=== PATIENT | male | born 1960 | race Caucasian/White ===

== ENCOUNTER → 2017-04-20 | Outpatient (CLI) | payer OTHER ==
[~2017-04-20] MED LIST: ATV/1 PO; AZIT250T PO; CYCL10TA6 PO; DRV100 PO; LRT5 PO; NXM/40 PO; RMR15 PO; VICODIN PO; ZFRODT4 SL
--- NOTE | 2017-04-20 07:40 | DIAGNOSTIC IMAGING REPORT ---
ABDOMEN FOR HERNIA CLINICAL HISTORY: 57 years-old Male presenting with GROIN PAIN. TECHNIQUE: Real-time grayscale ultrasound imaging of the right inguinal region and the right proximal thigh was performed for a focused evaluation for inguinal hernia. COMPARISON: None. FINDINGS: At the site of reported pain in the proximal medial right upper thigh, no gross abnormality noted. Normal musculature. No fluid collection. No subcutaneous edema. In the right inguinal canal, no apparent herniation of intra-abdominal contents despite Valsalva maneuver. IMPRESSION: 1. No abnormality at the site of clinical concern. 2. No evidence of right inguinal hernia. Electronically signed by: Ye Stone M.D. 04/20/2017 7:39 AM Dictated Date/Time: 04/20/2017 7:37 AM
== END | disposition home or self-care (01) ==
LOC: C.ULTR 06:36
PROVIDERS: ATTEND Nurse Practitioner Adult Health
DX: R10.9 Unspecified abdominal pain (principal)

== ENCOUNTER 2017-04-21 13:38 | Emergency (ER) | payer OTHER ==
[~2017-04-21] VITALS: Ht 177.8 cm; Wt 66.1 kg
[~2017-04-21 13:38] MED LIST changes: -ATV/1 PO; -CYCL10TA6 PO; -VICODIN PO
[2017-04-21 13:40] VITALS: TEMP 36.7; Ht 177.8 cm; Wt 66.1 kg
[2017-04-21 14:50] LABS: URINE APPEARANCE CLEAR (CLEAR); URINE BILIRUBIN NEG (NEG); URINE COLOR YELLOW; URINE NITRITE NEG (NEG); URINE SPECIFIC GRAVITY 1.014 (1.000-1.030); UROBILINOGEN NEG (NEG); ZZUR CULT IF INDIC CLEAN CATCH NO
--- NOTE | 2017-04-21 14:52 | EMERGENCY ROOM VISIT NOTE ---
History First contact with patient: 13:48 Chief Complaint: GROIN PAIN Stated Complaint: GROIN PAIN- WORK RELATED History of Present Illness The patient is a 57 year old male who presents to the Emergency Room with complaints of right groin pain 2 weeks. 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 He states that evening and the next day, he began experiencing right groin pain. He states he did think that this was a pulled muscle at the time, so did continue to work for the next week. 2 days ago, the patient states the pain became unbearable, so he went to occupational medicine for evaluation. Occupational medicine suspected a hernia in his groin, so ordered an ultrasound, which was completed yesterday. Ultrasound was negative for hernia. Today, the patient saw occupational medicine providers again, who stated the patient did not have a right patellar reflex, so sent him to the emergency department to have an MRI to rule out cauda equina syndrome. The patient is reporting discomfort from the right groin radiating down to his knee. He states standing still makes the pain worse , and it radiates down the medial aspect of his leg to his toe. The patient reports the pain is like something was torn or strained. He states when he is standing still, he experiences a sensation like warm water is running down his leg. The patient states moving makes the discomfort better. The patient denies back pain, loss of bowel or bladder function, weakness, paresthesias, fever, chills, vomiting, abdominal pain. He states he has been experiencing lumbar back pain for several years related to an L5 disc surgery, and states his pain that he is experiencing in his low back is his usual pain. Patient does report nausea. Review of Systems A complete 10 point review of systems was reviewed with the patient with pertinent positives and negatives as per history of present illness. All else were negative. Social History Smoking Status: Current Every Day Smoker Smokeless Tobacco Use: No Alcohol Use: none Drug Use: none Occupation Status: employed Current/Historical Medications Scheduled Esomeprazole Magnesium (Nexium), 40 MG PO DAILY Allergies Morphine Physical Exam Vital Signs Date Time Temp Pulse Resp B/P (MAP) Pulse Ox O2 Delivery O2 Flow Rate FiO2 04/21/17 18:02 65 16 131/85 99 04/21/17 17:12 68 16 134/82 7/20/17 15:35 65 20 123/79 96 Room Air 04/21/17 13:40 36.7 80 16 142/94 96 Room Air Physical Exam VITALS: Vitals are noted on the nurse's note and reviewed by myself. Vital signs stable. GENERAL: 77-year-old male, in no acute distress, nondiaphoretic, well-developed well-nourished. SKIN: The skin was without rashes, erythema, edema, or bruising. Capillary refill less than 2 seconds. NECK: Supple without nuchal rigidity. No cervical spine tenderness. No paraspinous muscle tenderness. HEART: Regular rate and rhythm without murmurs gallops or rubs. LUNGS: Clear to auscultation bilaterally without wheezes, rales or rhonchi. ABDOMEN: Positive bowel sounds x 4. Normal tympanic percussion. Soft, nontender, without masses or organomegaly. Warren sign negative. MUSCULOSKELETAL: No muscle atrophy, erythema, or edema noted of the back. There is no tenderness over the lumbar spinous processes. There is no tenderness over the paraspinous muscles bilaterally. There is no tenderness over the thoracic spine or paraspinous muscles. There are no muscle spasms present. The patient is slow to move around with maximum tenderness with standing straight. The patient does have significant tenderness of the right groin and medial thigh. Negative straight leg raise test. NEURO: Patient was alert and oriented to person place and time. Normal sensation to light and sharp touch. Patellar reflex 3+ on the left and 1+ on the right. Dorsalis pedis pulse 2+ bilaterally. Strength 5/5 and equal in the bilateral lower extremities. Medical Decision & Procedures ER Provider Diagnostic Interpretation: MRI Lumbar spine without contrast: FINDINGS: For the purpose of the report the L5-S1 disc space will be located on axial image of . Moderate degenerative disc changes throughout. Rather significant at L5-S1. L1-L2: Mild broad-based bulging disc. Mild impact anterior thecal sac. Neural foramina are patent bilaterally. L2-L3: Broad-based bulging disc with minimal impact anterior thecal sac. Rather significant narrowing left neuroforamina. L3-L4: Broad-based bulging disc with mild narrowing of the neuroforamina bilaterally. L4-L5: Broad-based bulging disc with significant narrowing right neuroforamina L5-S1: Broad-based bulging disc with no significant impact upon the thecal sac. Moderate narrowing of the right neuroforamina. IMPRESSION: 1. Multilevel degenerative disc change with multilevel bulging disc components. 2. Broad-based bulging disc is creating narrowing right neuroforamina at L4-L5. 3. Broad-based bulging disc L3-L4 with mild narrowing of the neuroforamina bilaterally. 4. Broad-based bulging disc L2-L3 with moderate narrowing left neuroforamina. URINALYSIS: Negative Laboratory Results Test 04/21/17 14:12 Urine Color YELLOW Urine Appearance CLEAR (CLEAR) Urine pH 6.0 (4.5-7.5) Urine Specific [place] 1.014 (1.000-1.030) Urine Protein NEG (NEG) Urine Glucose (UA) NEG (NEG) Urine Ketones NEG (NEG) Urine Occult Blood NEG (NEG) Urine Nitrite NEG (NEG) Urine Bilirubin NEG (NEG) Urine Urobilinogen NEG (NEG) Urine Leukocyte Esterase NEG (NEG) ED Course The patient was seen and evaluated as above. I discussed the case with Dr. Bhagat. He did recommend MRI and urinalysis. MRI without contrast was ordered. I reviewed urinalysis. MRI results were reviewed by myself and radiologist. My results as interpreted by radiologist are noted above. I discussed the findings with the patient. I did recommend he follow up with or the spine and contact them tomorrow. I discussed discharge instructions with the patient and he was discharged home in good condition. Medical Decision Throughout the course of the patient's care, I considered etiologies including: Cauda equina syndrome, bulging disc, degenerative disc disease, spinal stenosis , nerve impingement, malignancy, groin pain, groin strain, hernia, and others. Based on the patient's physical exam and workup. I feel that we have ruled out cauda equina syndrome, which is what patient came here to do. Based on the patient's MRI findings, I do feel that he has some chronic disc disease, and strongly encouraged him to follow up with ortho spine for further evaluation and management of his back pain. I do feel that the patient's symptoms are related to a garcía strain, and I feel that the MRI findings are chronic and not related to his groin injury from work. Medication Reconcilliation Current Medication List: was personally reviewed by me Blood Pressure Screening Patient's blood pressure: Normal blood pressure Impression Primary Impression: Groin strain Additional Impression: Bulging lumbar disc Departure Information Dispostion Home / Self-Care Condition GOOD Referrals Jony iMllan M.D. (PCP) Patient Instructions ED Strain [place], [facility] Additional Instructions At the request of your occupational medicine provider, we did perform an MRI of the lumbar spine in the emergency department to rule out cauda equina syndrome. The MRI did show bulging disks throughout the lumbar spine with mild to significant narrowing of the neuroforamina. Most significantly, the MRI showed significant narrowing of the right foramina at L4-L5. There was mild to moderate narrowing at L2-L3 and L3-L4. Based on these findings, I do strongly encourage you to follow up with ortho spine. You have been provided with a phone number for an orthopedic surgeon to contact. Work closely with your occupational medicine provider or family doctor in order to have this appointment set up. Please contact the surgeon tomorrow morning for an appointment. Continue following the pain regimen prescribed to you by occupational medicine. For pain control, you can use the following tkel-zsk-gtturob medicines (if >12 yo): - Regular strength (325mg/tab) Tylenol (acetaminophen) 2 tabs every 4-6 hours as needed. Do not exceed 9 tablets in a 24 hour period. Avoid taking more than 3 grams (3000 mg) of Tylenol per day. This includes any other sources of acetaminophen you may take on a regular basis. - Regular strength (200 mg/tab) Advil (ibuprofen) 1-2 tabs every 4-6 hours as needed. Do not exceed a dose of 3200 mg per day. If you experience worsening pain, numbness, tingling, loss of control of your bowel or bladder function, urinary retention, loss of muscle tone or weakness, or other associated concerning symptoms, return to the Emergency Department for further evaluation. Problem Qualifiers Primary Impression: Groin strain Encounter type: initial encounter Laterality: right Qualified Codes: S76.211A - Strain of adductor muscle, fascia and tendon of right thigh, initial encounter
[2017-04-21 15:05] LABS: MANUAL MICROSCOPIC REQUIRED? NO; REVIEW REQ? NO
--- NOTE | 2017-04-21 16:54 | DIAGNOSTIC IMAGING REPORT ---
LUMBAR SPINE W/O CONTRAST HISTORY: Pain right groin pain, diminished right patellar reflex TECHNIQUE: Multiplanar multisequence MRI of the lumbar spine was performed without the use of contrast. COMPARISON: None. FINDINGS: For the purpose of the report the L5-S1 disc space will be located on axial image 27 of 30. Moderate degenerative disc changes throughout. Rather significant at L5-S1. L1-L2: Mild broad-based bulging disc. Mild impact anterior thecal sac. Neural foramina are patent bilaterally. L2-L3: Broad-based bulging disc with minimal impact anterior thecal sac. Rather significant narrowing left neuroforamina. L3-L4: Broad-based bulging disc with mild narrowing of the neuroforamina bilaterally. L4-L5: Broad-based bulging disc with significant narrowing right neuroforamina L5-S1: Broad-based bulging disc with no significant impact upon the thecal sac. Moderate narrowing of the right neuroforamina. IMPRESSION: 1. Multilevel degenerative disc change with multilevel bulging disc components. 2. Broad-based bulging disc is creating narrowing right neuroforamina at L4-L5. 3. Broad-based bulging disc L3-L4 with mild narrowing of the neuroforamina bilaterally. 4. Broad-based bulging disc L2-L3 with moderate narrowing left neuroforamina. The above report was generated using voice recognition software. It may contain grammatical, syntax or spelling errors. Electronically signed by: Jason Denney M.D. 04/21/2017 4:53 PM Dictated Date/Time: 04/21/2017 4:49 PM
[2017-04-21 18:02] VITALS: BP 131/85; PULSE 65; O2SAT 99
[2017-05-19] MEDS ORDERED: CYCL10TA6 PO (08:24)
[2017-05-19] MEDS ORDERED: VICODIN PO (08:24)
[2017-05-19] MEDS ORDERED: ATV/1 PO (08:24)
== END 2017-04-21 18:03 | disposition home or self-care (01) ==
LOC: C.EDB 13:41
DX: S76.211A Strain of adductor muscle, fascia and tendon of right thigh, initial encounter (principal); M51.26 Other intervertebral disc displacement, lumbar region; X50.9XXA Other and unspecified overexertion or strenuous movements or postures, initial encounter; Y93.89 Activity, other specified; Y99.0 Civilian activity done for income or pay; F17.200 Nicotine dependence, unspecified, uncomplicated

== ENCOUNTER → 2017-04-26 | Outpatient (CLI) | payer SELFPAY ==
[~2017-04-26] MED LIST changes: +ATV/1 PO; -AZIT250T PO; +CYCL10TA6 PO; -DRV100 PO; -LRT5 PO; -RMR15 PO; +VICODIN PO; -ZFRODT4 SL
--- NOTE | 2017-04-26 09:36 | DIAGNOSTIC IMAGING REPORT ---
RIGHT HIP UNILATERAL 2 VIEWS HISTORY: 57 years-old Male RIGHT HIP PAIN Right COMPARISON: None available TECHNIQUE: 2 views of the right hip FINDINGS: There is mild osteoarthritis of the right femoral acetabular joint. No acute fracture or dislocation identified. Moderate degenerative changes are seen within the pubic symphysis. Phlebolith is seen within the right hemipelvis. Negative for radiopaque foreign body. There is chondrocalcinosis of the pubic symphysis. IMPRESSION: 1. Mild degenerative change of the right femoral acetabular joint without acute fracture or dislocation. 2. Moderate degenerative change of the pubic symphysis with chondrocalcinosis. The above report was generated using voice recognition software. It may contain grammatical, syntax or spelling errors. Electronically signed by: Taqueria Rasheed M.D. 04/26/2017 9:35 AM Dictated Date/Time: 04/26/2017 9:33 AM
== END | disposition home or self-care (01) ==
LOC: C.RAD1850 09:15
PROVIDERS: ATTEND Physician Assistant
DX: M25.551 Pain in right hip (principal); R10.30 Lower abdominal pain, unspecified; M16.11 Unilateral primary osteoarthritis, right hip

== ENCOUNTER 2017-05-30 08:02 | Observation (INO) | payer OTHER, BC ==
--- NOTE | 2017-05-19 09:01 | PAT Medication Instructions ---
Service Date May 19, 2017. Current Home Medication List Cyclobenzaprine Hcl (Flexeril), 10 MG PO BID Esomeprazole Magnesium (Nexium), 40 MG PO PRN Lorazepam (Ativan), 1 MG PO HS [Vicodin], 1 TAB PO BID Medication Instructions For Your Scheduled Surgery - Hold the following medications the morning of surgery: Cyclobenzaprine Hcl (Flexeril), 10 MG PO BID - Take the following medications the morning of surgery with a sip of water: [Vicodin], 1 TAB PO BID (okay to take up to 4 hours prior to surgery if needed) Esomeprazole Magnesium (Nexium), 40 MG PO PRN (if needed) - Take the following medications as scheduled the night before surgery: Esomeprazole Magnesium (Nexium), 40 MG PO PRN (if needed) Lorazepam (Ativan), 1 MG PO HS [Vicodin], 1 TAB PO BID If you have any questions please call us at [phone] or [phone] or [phone]
--- NOTE | 2017-05-19 09:58 | DIAGNOSTIC IMAGING REPORT ---
CHEST PREADMISSION(PA/LAT) HISTORY: Preop. COMPARISON: Chest 05/09/2013. FINDINGS: The lungs are clear. Cardiac silhouette is normal in size. No pleural effusions. No pneumothorax. Hyperexpanded. IMPRESSION: No change in the hyperexpanded lungs. No acute process. Electronically signed by: Miki Guzman M.D. 05/19/2017 9:57 AM Dictated Date/Time: 05/19/2017 9:55 AM
[2017-05-19 10:00] LABS: BASO % 0.1 %; BASO ABS # 0.02 K/uL (0-0.2); COMPLETE YES; EOS % 0.1 %; HEMATOCRIT 43.7 % (42-52); IG% 0.4 %; LYMPH % 7.7 %; LYMPH ABS # 1.06 K/uL (1.2-3.4); MEAN CELL VOLUME 91.8 fL (80-100); MEAN CORPUSCULAR HEMOGLOBIN 30.9 pg (25-34); MEAN CORPUSCULAR HGB CONC 33.6 g/dl (32-36); MEAN PLATELET VOLUME 9.5 fL (7.4-10.4); MONO % 0.3 %; NEUT % 91.4 %; PLATELET COUNT 390 K/uL (130-400); RED BLOOD COUNT 4.76 M/uL (4.7-6.1)
[2017-05-19 10:03] LABS: URINE APPEARANCE CLEAR (CLEAR); URINE BILIRUBIN NEG (NEG); URINE COLOR YELLOW; URINE NITRITE NEG (NEG); URINE PH 5.5 (4.5-7.5); URINE SPECIFIC GRAVITY 1.014 (1.000-1.030); UROBILINOGEN NEG (NEG)
[2017-05-19 10:14] LABS: PROTHROMBIN TIME (PATIENT) 10.2 SECONDS (9.0-12.0)
[2017-05-19 10:18] LABS: MANUAL MICROSCOPIC REQUIRED? NO; REVIEW REQ? NO
[2017-05-19 11:12] LABS: BUN/CREATININE RATIO 22.6 (10-20); CALCIUM 9.2 mg/dl (8.5-10.1); CREATININE 0.89 mg/dl (0.60-1.40); POTASSIUM 3.8 mmol/L (3.5-5.1)
[2017-05-30] VITALS (8 sets, daily range): BP systolic 121–151; BP diastolic 84–98; PULSE 69–85; TEMP 36.6–36.9; O2SAT 96–100; Ht 177.8 cm; Wt 64.6 kg
[~2017-05-30] VITALS: Ht 177.8 cm; Wt 64.6 kg
[~2017-05-30 08:02] MED LIST changes: +CEFAZOLIN 2000 MG/60 ML D5W 60 ML IV SCH; +LACTATED RINGER'S 1000ML 1,000 ML IV SCH; +NSS 1000ML IV SCH
[2017-05-30] MEDS ORDERED: GELATIN SPONGE SZ 100 ONE (10:29)
[2017-05-30] MEDS ORDERED: THROMBIN FOR SOLN 20000 UNIT KIT ONE (10:29)
[2017-05-30] MEDS ORDERED: VANCOMYCIN HCL 1000MG/20ML VIAL ONE (10:30)
[2017-05-30] MEDS ORDERED: BUPIVACAINE/EPINEPHRINE 0.5% MPF 1:200,000 10 ML VIAL ONE (10:30)
[2017-05-30] MEDS ORDERED: MIDAZOLAM HCL 1 MG/ML 2ML VIAL ONE (10:31)
[2017-05-30] MEDS ORDERED: BACITRACIN 50000 UNIT VIAL ONE (10:31)
[2017-05-30] MEDS ORDERED: HYDROmorphone INJ 2 MG/ML SYR/VIAL ONE ×2 (10:31→13:32)
[2017-05-30] MEDS ORDERED: FENTANYL CITRATE INJ 50 MCG/1 ML 2 ML VIAL ONE (10:31)
--- NOTE | 2017-05-30 10:42 | History and Physical ---
History & Physical Date May 30, 2017. Chief Complaint Lower extremity difficulty. Hip and groin pain History of Present Illness The patient is a 57 year old male with complaints of hip groin pain and lower extremity difficulty paresthesias and weakness Past Medical/Surgical History Anxiety no hypertension no diabetes no any tenderness reflex positive negative for hypertension COPD carcinoma Additional History Hepatic Disease: No Endocrine Disorder: No Kidney Disease: No Hypertension: No Heart Disease: No Bleeding Tendencies: No Infectious Diseases: No Allergies Coded Allergies: Fentanyl (Verified Allergy, Unknown, FENTANYL PATCH- DIFFUSE HIVES, ) Morphine (Verified Adverse Reaction, Unknown, NAUSEA, 05/30/17) Home Medications Scheduled Cyclobenzaprine Hcl (Flexeril), 10 MG PO BID Esomeprazole Magnesium (Nexium), 40 MG PO PRN Lorazepam (Ativan), 1 MG PO HS [Vicodin], 1 TAB PO BID Physical Examination Skin: warm/dry Eyes: normal inspection, sclerae normal ENT: normal ENT inspection Head: normocephalic Neck: supple Respiratory/Chest: lungs clear Cardiovascular: regular rate, rhythm Abdomen / GI: normal bowel sounds Back: normal inspection Extremities: + pertinent finding (lower extremity difficulty paresthesias groin pain and weakness) ASA Classification: ASA Class III (discectomy L3-4, possible globus transition )
[2017-05-30] MEDS ORDERED: LIDOCAINE HCL 2% 2 ML VIAL (20MG/ML) ONE (11:24)
[2017-05-30] MEDS ORDERED: DEXAMETHASONE SOD INJ 4 MG/ML VIAL ONE (11:24)
[2017-05-30] MEDS ORDERED: CISATRACURIUM BESYLATE IV SOLN 2 MG/ML 10 ML VIAL ONE (11:24)
[2017-05-30] MEDS ORDERED: SUCCINYLCHOLINE CHLORIDE 20 MG/ML 10 ML VIAL IV ONE (11:24)
[2017-05-30] MEDS ORDERED: PROPOFOL IV EMULSION 10 MG/ML 20 ML VIAL IV ONE (11:24)
--- NOTE | 2017-05-30 12:57 | DIAGNOSTIC IMAGING REPORT ---
LUMBAR SPINE, INTRAOPERATIVE FLUOROSCOPY HISTORY: L3-L4 discectomy. FLUOROSCOPY TIME: 14 seconds. FINDINGS: Intraoperative fluoroscopy was provided for the lumbar spine. A single fluoroscopic spot image of the lumbar spine. Posterior decompression and fusion at L3-L4 with pedicle screws. The hardware appears intact.. IMPRESSION: Fluoroscopy provided for a L3-L4 posterior decompression and fusion. Electronically signed by: Miki Guzman M.D. 05/30/2017 12:55 PM Dictated Date/Time: 05/30/2017 12:54 PM
[2017-05-30] MEDS ORDERED: ALBUTEROL 0.083% NEBU SOLN 3 ML VIAL INH PRN (13:15)
[2017-05-30] MEDS ORDERED: ONDANSETRON INJ 2 MG/ML 2 ML VIAL IV PRN ×2 (13:15→13:30)
[2017-05-30] MEDS ORDERED: HYDROmorphone INJ 1 MG/ML SYR IV PRN (13:15)
[2017-05-30] MEDS ORDERED: NALOXONE HCL 0.4 MG/1 ML VIAL/CARP IV PRN (13:15)
[2017-05-30] MEDS ORDERED: FLUMAZENIL 0.1 MG/1 ML 10 ML VIAL IV PRN (13:15)
[2017-05-30] MEDS ORDERED: EpHEDrine SULFATE INJ 50 MG/ML AMP IV PRN (13:15)
[2017-05-30] MEDS ORDERED: PROMETHAZINE HCL INJ 12.5 MG in SODIUM CHLORIDE 0.9% 50ML 50 ML IV PRN ×2 (13:15→13:30)
[2017-05-30] MEDS ORDERED: ATROPINE SULFATE 0.1 MG/ML 5ML SYR IV PRN (13:15)
--- NOTE | 2017-05-30 13:29 | [facility] Operative Report ---
Operative Report Operative Date May 30, 2017. Pre-Operative Diagnosis Lumbar Disc Herniation L3-L4 Post-Operative Diagnosis same as pre-operative Procedure(s) Performed L3-L4 Discectomy with Globus Transition Surgeon Dr. Layo Calderon Electronic Drafter Surgeon(s) GAL Olson Estimated Blood Loss 100ml Findings Stenosis and disc herniation L3 4 lumbar spine and mild to moderate instability Specimens none per surgeon Complication(s) None Disposition Recovery Room / PACU Description of Procedure Description of procedure She was taken to the operating room and general intubated anesthetic provided patient. Placed prone on J Carlos table. Scrubbed prepped draped sterile. Skin incision was made over the 34 interspace of the lumbar spine we dissected the soft tissue out over the lamina and transverse processes. With a classic laminectomy at L3 4 retracted the dura over on the right-hand side we decompressed reinforced root. We did formal discectomy at this level I evaluate each nerve root with an instrument felt that to be free of obstruction. Instrument instrumented spine safely getting pedicle screws at 3 and 4 lumbar spine bilaterally. The [employer] [place] preserving technology 28 mm spacer on the right at 26 mm on the left. Stable imaging was certainly satisfactory. Home graft over the transverse processes we irrigated with approximately 500 mL of [place]. Closed over Hemovac drain with 1 Vicryl suture to all and 3-0 nylon the skin. Sterile dressings applied. Patient returned to recovery room satisfactory stable Needle count correct estimated blood loss 100 mL's after certified pathology assistant Milton Taylor PAC I attest to the content of the Intraoperative Record and any orders documented therein. Any exceptions are noted below.
[2017-05-30] MEDS ORDERED: MAGNESIUM HYDROXIDE SUSP 30 ML UDC PO PRN (13:30)
[2017-05-30] MEDS ORDERED: OXYCODONE/ACETAMINOPHEN 5-325 TAB PO PRN (13:30)
[2017-05-30] MEDS ORDERED: LORAZEPAM 1 MG TAB PO PRN (13:30)
[2017-05-30] MEDS ORDERED: METOCLOPRAMIDE HCL INJ 5 MG/ML 2 ML VIAL IV PRN (13:30)
[2017-05-30] MEDS ORDERED: ACETAMINOPHEN 325 MG TAB PO PRN (13:30)
[2017-05-30] MEDS ORDERED: LORAZEPAM INJ 1 MG in SYRINGE 0 ML IV PRN (13:30)
[2017-05-30] MEDS: LABETALOL HCL IV 5 MG/ML 20ML IV PRN ×2 (13:37→13:45)
[2017-05-30] MEDS ORDERED: LABETALOL HCL IV 5 MG/ML 20ML IV ONE (13:37)
[2017-05-30] MEDS ORDERED: HydrALAZINE HCL 20 MG/ML VIAL IV. STA (14:20)
[2017-05-30] MEDS ORDERED: HydrALAZINE HCL 20 MG/ML VIAL ONE (14:20)
--- NOTE | 2017-05-30 14:39 | Anesthesiology Progress Note ---
Anesthesia Post Op Note Date & Time May 30, 2017 at 14:39 Vital Signs Pain Intensity: 1 Vital Signs Past 12 Hours Date Time Temp Pulse Resp B/P (MAP) Pulse Ox O2 Delivery O2 Flow Rate FiO2 05/30/17 14:17 36.8 05/30/17 14:16 159/97 05/30/17 14:15 59 05/30/17 14:15 58 16 99 05/30/17 14:13 156/102 05/30/17 14:11 160/100 05/30/17 14:10 61 05/30/17 14:10 61 16 100 05/30/17 14:06 157/96 05/30/17 14:05 58 05/30/17 14:05 58 16 99 05/30/17 14:02 153/99 05/30/17 14:00 58 16 05/30/17 14:00 58 100 05/30/17 13:56 146/96 05/30/17 13:55 61 16 100 05/30/17 13:55 61 05/30/17 13:51 165/102 05/30/17 13:50 Nasal Cannula 4 05/30/17 13:50 60 16 100 05/30/17 13:50 60 05/30/17 13:46 158/96 05/30/17 13:45 61 16 100 05/30/17 13:45 61 05/30/17 13:40 78 17 170/100 100 05/30/17 13:40 80 17 05/30/17 13:36 191/158 05/30/17 13:35 79 16 05/30/17 13:35 81 16 100 05/30/17 13:31 173/92 05/30/17 13:30 81 10 100 05/30/17 13:30 82 10 05/30/17 13:28 164/100 05/30/17 13:25 36.8 84 16 164/100 100 Mask 10 05/30/17 08:33 36.7 69 18 145/ (48) 99 Room Air Notes Mental Status: alert / awake / arousable, participated in evaluation Pt Amnestic to Procedure: Yes Nausea / Vomiting: adequately controlled Pain: adequately controlled Airway Patency, RR, SpO2: stable & adequate BP & HR: stable & adequate Hydration State: stable & adequate Anesthetic Complications: no major complications apparent
[2017-05-30] MEDS ORDERED: IV FLUIDS COMPLETED PRN (15:00)
[2017-05-30] MEDS: HYDROmorphone INJ 1 MG/ML SYR IV PRN ×2 (15:45→21:05)
[2017-05-30] MEDS: KETOROLAC TROMETHAMINE 30 MG/ML VIAL IV. SCH ×2 (17:37→23:35)
[2017-05-30] MEDS: SODIUM CHLORIDE 0.9% 1000ML 1,000 ML IV SCH (17:43)
[2017-05-30] MEDS: CEFAZOLIN IV 1,000 MG in DEXTROSE 5% 50ML 50 ML IV SCH (17:51)
[2017-05-30] MEDS: OXYCODONE/ACETAMINOPHEN 5-325 TAB PO PRN (18:12)
[2017-05-30] MEDS ORDERED: LORAZEPAM 1 MG TAB PO SCH (21:00)
[2017-05-31] MEDS: OXYCODONE/ACETAMINOPHEN 5-325 TAB PO PRN (01:28)
[2017-05-31] MEDS: CEFAZOLIN IV 1,000 MG in DEXTROSE 5% 50ML 50 ML IV SCH ×2 (01:29→09:37)
[2017-05-31] MEDS: SODIUM CHLORIDE 0.9% 1000ML 1,000 ML IV SCH ×2 (01:29→14:12)
[2017-05-31] MEDS: HYDROmorphone INJ 2 MG/ML SYR/VIAL IV PRN ×2 (02:21→08:00)
[2017-05-31 04:10] VITALS: BP 143/85; PULSE 70; TEMP 36.9; O2SAT 97
[2017-05-31] MEDS: KETOROLAC TROMETHAMINE 30 MG/ML VIAL IV. SCH ×2 (05:47→14:01)
[2017-05-31] MEDS ORDERED: BISACODYL 10 MG SUPP PR PRN (06:00)
[2017-05-31] MEDS ORDERED: BISACODYL 5 MG TABEC PO PRN (06:00)
[2017-05-31 07:49] VITALS: BP 147/89; PULSE 79; TEMP 36.9; O2SAT 97
--- NOTE | 2017-05-31 07:57 | Discharge Instructions ---
Discharge Instructions Date of Service May 31, 2017. Admission Reason for Admission: Lumbar Disc Herniation L3-L4, Spinal Stenosis Discharge Discharge Diagnosis / Problem: same Discharge Goals Goal(s): Improve function Activity Recommendations Activity Limitations: as noted below Lifting Limitations: until after follow-up appointment be careful. home and recover . Instructions / Follow-Up Instructions / Follow-Up MEDICATIONS: Please take your prescriptions as instructed at your pre-op appointment. SPECIAL CARE: The following information is intended to answer some of the common questions and concerns regarding your surgery. Each patient is an individual and receives individual counselling throughout the course of treatment, from diagnosis to surgery all the way through recovery. What follows is not an exhaustive list, but should be a useful guide to some of the common questions and concerns patients have regarding their surgeries. These are not provided to keep you from calling us; rather, they give you something accurate and concrete to reference as you recover from your procedure. If you need us, we are available to you. As always, if you are not sure about something, call us at [phone]. MEDICAL EMERGENCIES: For these conditions, call 911 or go to your local hospital-based Emergency Department - not [facility] or equivalent. * Paralysis * Severe chest pain or difficulty breathing * Swelling or redness of either leg Spine procedures can be rather complex and though complications are rare, they do occur. In such cases, effective advice regarding emergency situations cannot always be addressed over the telephone. You may be referred to the emergency department for more effective management of your problem. Activity Limitations: It is important to give your body time to heal, so please limit your activities : * In general, don't do anything that moves your spine too much. You should avoid contact sports, twisting or heavy lifting while you recover. * 5-10 pounds is all you should attempt to lift. * You should not plan on driving for approximately 3 weeks and you should avoid traveling more than 30-45 minutes at a time. Longer trips should be broken down with walking breaks spaced appropriately. * Physical therapy is not usually required. * Walking and good posture practices will help you recover and regain your function. * Avoid straining or sudden changes in position. * In general, the goal is to take it easy and recover. Don't cause any new problems. Just relax. Showers: * Do not take a bath, use a Jacuzzi or hot tub or otherwise submerge your incision. * It is usually safe to take a shower 4-5 days after your surgery. * Your incision does not require any special creams or ointments. * Simply clean it with soap and water, dry and re-dress with a clean bandage afterwards. Incision: * Keep incision clean, dry and protected until your first follow-up appointment. * Some amount of drainage and redness is normal. Any drainage should be fairly clear and not have a foul odor. * If you feel anything is wrong or you have excessive drainage, please call us. * Your stitches and kandy will be removed 10-14 days after your surgery. At the time of your first post-op visit. * Neck surgeries are typically closed with a suture underneath the skin. The steri-strips over the incision should be maintained until we see you in the office. Bracing: * You may be provided with a back or neck brace to encourage good posture and prevent injury. It will remind you not to do too much as you heal and will alert others to the fact that you have had a surgery. * Back braces may be removed for showers and when you are resting at home. They must be worn when you are walking around for any period of time or for travel. * For neck surgery, you will likely be provided with two cervical collars. The soft collar ([place] or foam rubber) is worn most commonly throughout the day and while sleeping. The plastic collar (provided at the hospital) is for showering/bathing. * Except while eating, collars should remain in place. More specifically, bracing is provided for a purpose and should be worn. * Please obtain your brace or collars prior to your operation and bring them to the hospital with you on the day of surgery. * You should also bring your collars to your post-op appointment with Dr. Calderon. You should always take good care of your body and practice healthy habits, especially following surgery. You should: * Follow your doctor's treatment plan * Sit and stand properly with good posture (ears over shoulders, shoulders over hips) Don't slouch * Learn to lift correctly * Exercise regularly (low-impact aerobic exercise is especially good, but check with your doctor first) * Generally, be up and walking for 5-10 minutes at a time at least 3-4 times per day from the day you get home * Increasing walking to tolerance until you can walk for 20-30 minutes at a time * Attain and maintain a healthy body weight * Eat healthy foods ( a well-balanced, low-fat diet rich in fruits and vegetables) and get enough calcium * Avoid excessive use of alcohol When to call our office - If you notice any of the following: * Increased pain not relieve by pain medicine * Fevers greater then 100 degrees F, chills or flu symptoms * Increased redness around incision * Drainage from the incision that is not clear * Any foul smelling drainage * Swelling or fluid collection beneath the skin Miscellaneous: * In the hospital, you may be given a walker or cane for support while walking. These are temporary needs and are intended to prevent injuries due to falls. You may discontinue them when you feel strong and steady enough on your feet. * Sleep in a comfortable position. We find that many patients find a lounge chair or recliner with several pillows to be beneficial in the early post-operative period. * The support stockings should be used for 7-10 days and may be discontinued when you are back to walking more and conducting usual household activities. No problem is insignificant. We are here to help you and get you well. Contact us at [phone]. Definitions: Foraminotomy: If part of the disc or a bone spur (osteophyte) is pressing on a nerve as it leaves the vertebra (through an exit called the foramen), a foraminotomy may be done. Otomy means "to make an opening." A foraminotomy is making the opening of the foramen larger, so the nerve can exit without being compressed. Laminotomy: Similar to the foraminotomy, a laminotomy makes a larger opening, this time in your bony plate protecting your spinal canal and spinal cord (the lamina). The lamina may be pressing on your nerve, so the surgeon may make more room for the nerves using a laminotomy. Laminectomy: Sometimes, a laminotomy is not sufficient. The surgeon may need to remove all or part of the lamina. This procedure is called a laminectomy. This can often be done at many levels without any harmful effects. Current Hospital Diet Patient's current hospital diet: Regular Diet Discharge Diet Recommended Diet: Regular Diet Procedures Procedures Performed: L3-L4 Discectomy with Globus Transition Pending Studies Studies pending at discharge: no Medical Emergencies . Who to Call and When: Medical Emergencies: If at any time you feel your situation is an emergency, please call 911 immediately. . Non-Emergent Contact Non-Emergency issues call your: Surgeon . "Provider Documentation" section prepared by Layo Calderon. . VTE Core Measure Inpt VTE Proph given/why not?: Treatment not indicated
--- NOTE | 2017-05-31 08:00 | Discharge Summary ---
Orthopedic Discharge Summary Admission Date/Reason May 30, 2017 at 13:27 Lumbar Disc Herniation L3-L4, Spinal Stenosis. Discharge Date/Disposition May 31, 2017 Home Diagnosis Principal Diagnosis: disc herniation Procedure(s) Performed lumbar discectomy and instrumentation Admission Physical Exam As per Admitting History & Physical. Discharge Instructions Please refer to the electronic Patient Visit Report (Discharge Instructions) for additional information.
--- NOTE | 2017-05-31 08:55 | DISCHARGE SUMMARY ---
SUBJECTIVE: He is alert, oriented. No chest pain, shortness of breath, no confusion, lower extremities are fine. OBJECTIVE: Vital signs stable, alert, oriented, breath sounds clear, afebrile. ASSESSMENT: Status post lumbar spine discectomy and instrumentation L3-L4 lumbar spine, doing well in the short run. DISPOSITION: Will try to get him discharged later on this evening. Will pull his drain, change his dressing. He has an appointment for followup. He has a prescription on his chart for hydrocodone for pain, back brace for support. Careful with bending, stooping, lifting. We will see him back in the office in approximately 10 days.
[2017-05-31] MEDS ORDERED: POLYETHYLENE (MIRALAX) 17 GM PACK PO SCH (09:00)
[2017-05-31] MEDS ORDERED: PANTOprazole SOD 40 MG TAB PO PRN (09:00)
[2017-05-31 10:19] VITALS: BP 147/89; PULSE 79; TEMP 36.9; O2SAT 97
[2017-05-31 13:16] VITALS: BP 116/74; PULSE 66; TEMP 37; O2SAT 95
[2017-05-31] MEDS: HYDROmorphone INJ 1 MG/ML SYR IV PRN (15:13)
== END 2017-05-31 15:52 | disposition home or self-care (01) ==
LOC: C.ACU 08:02 → C.3E 13:27 → ENRESERV 05-30 14:29
PROVIDERS: ADMIT Orthopaedic Surgery Orthopaedic Surgery of the Spine; ATTEND Orthopaedic Surgery Orthopaedic Surgery of the Spine
DX: M48.06 Spinal stenosis, lumbar region (principal); M51.26 Other intervertebral disc displacement, lumbar region

== ENCOUNTER → 2018-01-02 | Day surgery (SDC) | payer OTHER ==
[2017-12-27 14:55] VITALS: Ht 177.8 cm; Wt 59.1 kg
[~2018-01-02] VITALS: Ht 177.8 cm; Wt 59.1 kg
[~2018-01-02] MED LIST changes: -ATV/1 PO; +BUPIVACAINE 0.25% 2.5MG/ML PF 10 ML VIAL ONE; -CEFAZOLIN 2000 MG/60 ML D5W 60 ML IV SCH; +HYDR-3763 PO; +IOPAMIDOL INJ 61% 15 ML VIAL ONE; -LACTATED RINGER'S 1000ML 1,000 ML IV SCH; +LIDOCAINE HCL 1% MPF 5 ML VIAL ONE; -NSS 1000ML IV SCH; -NXM/40 PO; -VICODIN PO
--- NOTE | 2018-01-02 15:10 | History & Physical Bridge - [place] ---
H&P Re-Evaluation Bridge Note: I have examined the patient, reviewed the History & Physical and in the interval since the performance of the History & Physical I have noted the following changes of clinical significance: No changes noted
--- NOTE | 2018-01-02 15:31 | [facility] Post Operative Brief Note ---
Immediate Operative Summary Operative Date Jan 02, 2018. Pre-Operative Diagnosis Failed back syndrome, history of fusion Sacroiliitis Right greater than Left Post-Operative Diagnosis Same Procedure(s) Performed Bilateal Sacroiliac Joint Injections Surgeon Dr Jackson Glover Kick Boxer Surgeon(s) None Estimated Blood Loss 0 Findings Consistent with Post-Op Diagnosis Specimens NA Drains None Anesthesia Type Local Complication(s) none Disposition Disposition:
[2018-01-02 15:32] VITALS: TEMP 37.4
--- NOTE | 2018-01-02 15:32 | Discharge Instructions ---
Discharge Instructions Date of Service Jan 02, 2018. Visit Reason for Visit: Sacroiliitis, Arthrodesis Status Discharge Discharge Diagnosis / Problem: Low back pain Discharge Goals Goal(s): Decrease discomfort, Improve function Activity Recommendations Activity Limitations: resume your previous activity Anesthesia . Post Anesthesia Instructions: If you have had General Anesthesia or IV Sedation: * Do not drive today. * Resume driving when surgeon permits. * Do not make important decisions or sign legal documents today. * Call surgeon for: 1. Temperature elevations greater than 101 degrees F. 2. Uncontrollable pain. 3. Excessive bleeding. 4. Persistent nausea and vomiting. 5. Medication intolerance (nausea, vomiting or rash). * For nausea and vomiting use only clear liquids such as: tea, soda, bouillon until nausea subsides, then gradually increase diet as tolerated. * If you have any concerns or questions, call your surgeon's office. If physician is unavailable and it is an emergency, call 911 or go to the nearest emergency room. . Diet Recommendations Recommended Home Diet: resume previous diet Procedures Procedures Performed: Bilateal Sacroiliac Joint Injections Pending Studies Studies pending at discharge: no Medical Emergencies . Who to Call and When: Medical Emergencies: If at any time you feel your situation is an emergency, please call 911 immediately. . Non-Emergent Contact Non-Emergency issues call your: Specialist . . "Provider Documentation" section prepared by Jackson Glover. .
[2018-01-02 15:53] VITALS: BP 128/89; PULSE 96; O2SAT 96
--- NOTE | 2018-01-02 17:19 | OPERATIVE REPORT ---
DATE OF OPERATION: 01/02/2018 PREOPERATIVE DIAGNOSES: Chronic low back pain; history of a lumbar fusion with bilateral sacroiliitis, right greater than left. POSTOPERATIVE DIAGNOSES: Same. PROCEDURE: Bilateral sacroiliac joint injections under fluoroscopic guidance. INDICATIONS: The patient is a 57-year-old white male who underwent a fusion at [age] and he has had chronic pain ever since. He is describing pain below the level of the surgery, radiating out into the hips and groin area but never below the knees. It is bothered by prolonged sitting, prolonged standing or twisting. He was then only able to sleep in one particular position at night with pillow sports. His history and examination were consistent with sacroiliitis and he presents today for injections to try to help the joint pain. PHYSICAL EXAMINATION: Pleasant male who prefers to stand or lean over the exam table, well-healed incision. He is point tender to palpation of his SI joints bilaterally. Positive Taz maneuver is unable to be done because he is unable to lay flat because of significant pain. He had reproduction of axial back pain with some extension of the SI region. CONSENT: Verbal and written consent was obtained from the patient. Risks and benefits were reviewed. Risks include but are not limited to abscess and allergic reaction and wishes to proceed. DESCRIPTION OF PROCEDURE: The patient was taken back to the special procedures room of the [facility] where he was maintained in a prone position. Backside was cleansed with Betadine x3 and a dry sterile dressing was applied. Fluoroscope was used to identify the left SI joint and the overlying skin was anesthetized with 2 mL of lidocaine 1% with a 25 gauge 1.5-inch needle. A 25 gauge 3.5-inch needle was then directed into the joint. It was maneuvered so it was entered intraarticularly confirmed with less than 0.25 mL of Isovue 300 to be intraarticular. He then underwent injection after negative aspiration of 40 mg Depo-Medrol and 1.5 mL of bupivacaine 0.25%. The right SI joint was then fluoroscopically identified. The overlying skin was anesthetized with 2 mL of lidocaine 1% 25 gauge 1.5-inch needle. A 25 gauge 3.5 inch spinal needle was then directed into the SI joint. Isovue-300 contrast 0.25 mL demonstrated to be intraarticular and he underwent injection after negative aspiration of 40 mg of Depo-Medrol and 1.5 mL of bupivacaine 0.25%. Injection was well tolerated. DISPOSITION: 1. He was taken out into the discharge recovery area where he will be discharged home once discharge criteria have been met. 2. Follow up in the [facility] office in 4 weeks' time. I attest to the content of the Intraoperative Record and any orders documented therein. Any exception s are noted below.
== END | disposition home or self-care (01) ==
LOC: X.SURG 13:41
PROVIDERS: ATTEND Physical Medicine & Rehabilitation
DX: M46.1 Sacroiliitis, not elsewhere classified (principal); M54.5 Low back pain; M72.0 Palmar fascial fibromatosis [Dupuytren]; I10 Essential (primary) hypertension; F17.290 Nicotine dependence, other tobacco product, uncomplicated; Z98.1 Arthrodesis status; Z82.49 Family history of ischemic heart disease and other diseases of the circulatory system

== ENCOUNTER 2018-02-17 15:24 | Emergency (ER) | payer OTHER ==
[~2018-02-17] VITALS: Ht 172.7 cm; Wt 98.0 kg
[~2018-02-17 15:24] MED LIST changes: -BUPIVACAINE 0.25% 2.5MG/ML PF 10 ML VIAL ONE; -IOPAMIDOL INJ 61% 15 ML VIAL ONE; -LIDOCAINE HCL 1% MPF 5 ML VIAL ONE
[2018-02-17 15:27] VITALS: TEMP 37; Ht 172.7 cm; Wt 98.0 kg
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
[2018-02-17 16:10] VITALS: BP 147/89; PULSE 88; O2SAT 98
== END 2018-02-17 16:12 | disposition home or self-care (01) ==
LOC: EDBD 15:24 → C.EDB 15:25
DX: Z04.1 Encounter for examination and observation following transport accident (principal); V87.7XXA Person injured in collision between other specified motor vehicles (traffic), initial encounter; F17.210 Nicotine dependence, cigarettes, uncomplicated; Z88.8 Allergy status to other drugs, medicaments and biological substances